=== PATIENT | male | born 1990 | race Two or more races ===

== ENCOUNTER 2018-08-09 13:58 | Emergency (ER) | payer SELFPAY ==
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
[2018-08-09 17:28] VITALS: RESP 21
[2018-08-09 22:27] VITALS: BP 118/70; PULSE 79; TEMP 97.1; O2SAT 99
== END 2018-08-09 22:29 | disposition home or self-care (01) ==
LOC: H.ER 13:58
DX: F10.229 Alcohol dependence with intoxication, unspecified (principal)
CPT/HCPCS: 82948; 96372; 99285; G0480; J2060